=== PATIENT | female | born 1995 | race Caucasian/White ===

== ENCOUNTER → 2017-01-31 | Outpatient (CLI) | payer BC ==
--- NOTE | 2017-01-31 11:58 | US ---
EXAMINATION TYPE: US abdomen complete DATE OF EXAM: 01/31/2017 COMPARISON: NONE CLINICAL HISTORY: R19.02 LUQ ABD MASS. Severe epigastric pain with inferior anterior rib cage palpabl e mass noted after lifting pallette of glass bottles at work. EXAM MEASUREMENTS: Liver Length: 10.8 cm Gallbladder Wall: 0.2 cm CBD: 0.2 cm Spleen: 8.5 cm Right Kidney: 11.6 x 4.3 x 4.2 cm Left Kidney: 11.8 x 4.5 x 4.6 cm Pancreas: wnl Liver: wnl Gallbladder: wnl Evidence for sonographic Radford's sign: No CBD: wnl Spleen: wnl Right Kidney: wnl Left Kidney: wnl Upper IVC: wnl Abd Aorta: wnl At skin thickness at inferior left anterior lower rib cage no masses were seen. The liver is homogenous. The intrahepatic portion of the IVC and visualized abdominal aorta through bifurcation are within normal limits. There is no evidence of cholelithiasis. Common bile duct is u nremarkable. The visualized portions of the pancreas are homogenous. The spleen is unremarkable. K idneys are symmetric and free of hydronephrosis. No renal lesions are seen. Images at end of study a nterior abdominal wall left upper quadrant show no worrisome solid or cystic mass or fluid collection . No hernia is evident. IMPRESSION: No suspicious finding is seen to account for patient's symptoms on images saved.
== END | disposition home or self-care (01) ==
LOC: RADUSWWP 10:10
PROVIDERS: ATTEND Family Medicine
DX: R19.02 Left upper quadrant abdominal swelling, mass and lump (principal); R10.12 Left upper quadrant pain
CPT/HCPCS: 76700